=== PATIENT | male | born 1965 | race Caucasian/White ===

== ENCOUNTER 2021-03-19 10:44 | Outpatient (CLI) | payer OTHER ==
[2021-03-19 12:05] LABS: Bilirubin Neg (Negative); Blood, Urine Negative (Negative); Clarity Clear (Clear); Glucose, Urine (Dipstick) Normal (Negative); Ketone, Urine Negative (Negative); Leukocyte Negative (Negative); Nitrite Negative (Negative); Protein, Urine (Dipstick) Negative (Neg-Trace); Specific Gravity, Urine 1.005 (1.002-1.036); Urobilinogen Normal mg/dL (Less than 2)
[2021-03-19 12:08] LABS: #Eosinphils 0.1 10x3/uL (0.0-0.5); #Monocytes 0.6 10x3/uL (0.0-1.1); %Basophils 0.8 % (0.0-2.0); %Eosinophils 1.6 % (0.0-6.0); %Lymphocytes 25.1 % (18.0-47.0); %Monocytes 11.8 % (0.0-10.0); %Neutrophils 60.3 % (40.0-75.0); Mean Corpuscular HGB CONC 33.3 g/dL (32.0-36.0); Mean Corpuscular Hemoglobin 32.9 pg (27.0-33.0); Mean Corpuscular Volume 98.8 fl (81.2-95.1); Mean Platelet Volume 9.5 fl (7.4-10.4); Platelet Count 236 10x3/uL (150-450); RBC Distribution Width 13.1 % (11.5-14.5); Red Blood Cell (RBC) Count 4.25 10x6/uL (4.32-5.72)
[2021-03-19 12:17] LABS: Bacteria/HPF None Seen HPF (None Seen); RBC/HPF 0-3 HPF (0-3); Squamous Epithelial None Seen HPF (0-3); WBC/HPF 0-3 HPF (0-3)
[2021-03-19 16:44] LABS: SARS-CoV-2 PCR by NAA Not Detected (NotDetected)
== END 2021-03-19 10:45 | disposition home or self-care (01) ==
LOC: LABBT 10:44
PROVIDERS: ATTEND Orthopaedic Surgery Hand Surgery
DX: Z01.818 Encounter for other preprocedural examination (principal); M72.0 Palmar fascial fibromatosis [Dupuytren]; G56.02 Carpal tunnel syndrome, left upper limb; Z20.822 Contact with and (suspected) exposure to COVID-19
CPT/HCPCS: 81001; 85025; 87635; 93005; 93010; U0003; U0005

== ENCOUNTER 2021-03-24 07:52 | Day surgery (SDC) | payer OTHER ==
[2021-03-23 09:55] VITALS: BMI 24.9
[2021-03-24] MEDS ORDERED: Sodium Chloride 0.9% 10 ML ONE (09:03)
[2021-03-24] MEDS ORDERED: Bupivacaine PF 0.5% 30 ML VIAL ONE (09:03)
[2021-03-24] MEDS ORDERED: Betamet Acet/Betamet Na Ph 30 MG/5 ML VIAL ONE (09:03)
[2021-03-24] MEDS ORDERED: Bacitracin Zinc Ointment 30 gm TUBE ONE (09:03)
[2021-03-24] MEDS ORDERED: Fentanyl 100 MCG/2 ML VIAL ONE (09:14)
[2021-03-24] MEDS ORDERED: Lidocaine 1% PF 5 ML VIAL ONE (09:32)
[2021-03-24] MEDS ORDERED: PHENYLEPHRINE-NS 100 MCG/ML 10 ML SYRINGE ONE (09:32)
[2021-03-24] MEDS ORDERED: ePHEDrine Sulfate 50 MG/10 ML VIAL ONE (09:32)
[2021-03-24] MEDS ORDERED: Ketorolac Tromethamine 30 MG/ML VIAL ONE (09:32)
[2021-03-24] MEDS ORDERED: PROPOFOL 200 MG/20 ML VIAL ONE (09:32)
[2021-03-24] MEDS ORDERED: Dexamethasone 20 MG/5 ML VIAL ONE (09:32)
[2021-03-24] MEDS ORDERED: Ondansetron PF 4 MG/2 ML Vial ONE ×2 (09:32)
== END 2021-03-24 14:20 | disposition home or self-care (01) ==
LOC: SDC 07:52
PROVIDERS: ATTEND Orthopaedic Surgery Hand Surgery
PROC: 01N50ZZ Release Median Nerve, Open Approach (ICD-10-PCS; principal; 2021-03-24)
PROC: 0LN80ZZ Release Left Hand Tendon, Open Approach (ICD-10-PCS; 2021-03-24)
PROC: 0JNK0ZZ Release Left Hand Subcutaneous Tissue and Fascia, Open Approach (ICD-10-PCS; 2021-03-24)
DX: M72.0 Palmar fascial fibromatosis [Dupuytren] (principal); G56.03 Carpal tunnel syndrome, bilateral upper limbs; M19.042 Primary osteoarthritis, left hand; I10 Essential (primary) hypertension; E78.5 Hyperlipidemia, unspecified; K21.9 Gastro-esophageal reflux disease without esophagitis; M47.816 Spondylosis without myelopathy or radiculopathy, lumbar region; F17.200 Nicotine dependence, unspecified, uncomplicated; Z79.899 Other long term (current) drug therapy
CPT/HCPCS: 88304; J0690; J0702; J1100; J1885; J2405; J2704; J3010; J3490; S0020

== ENCOUNTER 2021-04-02 14:57 | Outpatient (CLI) | payer OTHER ==
[2021-04-03 01:36] LABS: SARS-CoV-2 PCR by NAA Not Detected (NotDetected)
== END 2021-04-02 14:58 | disposition home or self-care (01) ==
LOC: LABBT 14:57
PROVIDERS: ATTEND Orthopaedic Surgery Hand Surgery
DX: Z01.812 Encounter for preprocedural laboratory examination (principal); T81.30XA Disruption of wound, unspecified, initial encounter; Z20.822 Contact with and (suspected) exposure to COVID-19
CPT/HCPCS: 87635; U0003; U0005

== ENCOUNTER 2021-04-03 12:51 | Day surgery (SDC) | payer OTHER ==
[2021-04-02 15:10] VITALS: BMI 24.9
== END 2021-04-03 13:49 | disposition home or self-care (01) ==
LOC: SDC 12:51
PROVIDERS: ATTEND Orthopaedic Surgery Hand Surgery
DX: Z53.9 Procedure and treatment not carried out, unspecified reason (principal); T81.30XA Disruption of wound, unspecified, initial encounter
CPT/HCPCS: J0690

== ENCOUNTER 2021-04-04 07:53 | Day surgery (SDC) | payer OTHER ==
[2021-04-04] MEDS ORDERED: Fentanyl 100 MCG/2 ML VIAL ONE (09:04)
[2021-04-04] MEDS ORDERED: Mineral Oil Sterile 10ML 10 ML UDCUP ONE (09:07)
[2021-04-04] MEDS ORDERED: Bupivacaine 0.25% HCL 30 ML VIAL ONE (09:07)
[2021-04-04] MEDS ORDERED: Bacitracin Zinc Ointment 30 gm TUBE ONE (09:08)
[2021-04-04] MEDS ORDERED: Thrombin 5000 UNITS/5 ML VIAL ONE (09:08)
[2021-04-04] MEDS ORDERED: Sodium Chloride 0.9% 10 ML ONE (09:08)
[2021-04-04] MEDS ORDERED: Lidocaine 1% PF 5 ML VIAL ONE (09:25)
[2021-04-04] MEDS ORDERED: Dexamethasone 20 MG/5 ML VIAL ONE (09:25)
[2021-04-04] MEDS ORDERED: Ketorolac Tromethamine 30 MG/ML VIAL ONE (09:25)
[2021-04-04] MEDS ORDERED: PROPOFOL 200 MG/20 ML VIAL ONE (09:25)
[2021-04-04] MEDS ORDERED: Ondansetron PF 4 MG/2 ML Vial ONE (09:25)
[2021-04-04] MEDS ORDERED: PHENYLEPHRINE-NS 100 MCG/ML 10 ML SYRINGE ONE (09:25)
[2021-04-04] MEDS ORDERED: Midazolam HCl 2 mg/2 ml Vial ONE (09:59)
== END 2021-04-04 12:20 | disposition home or self-care (01) ==
LOC: SDC 07:53
PROVIDERS: ATTEND Orthopaedic Surgery Hand Surgery
PROC: 0HRGX73 Replacement of Left Hand Skin with Autologous Tissue Substitute, Full Thickness, External Approach (ICD-10-PCS; principal; 2021-04-04)
PROC: 0JBK0ZZ Excision of Left Hand Subcutaneous Tissue and Fascia, Open Approach (ICD-10-PCS; principal; 2021-04-04)
DX: T81.31XA Disruption of external operation (surgical) wound, not elsewhere classified, initial encounter (principal); I10 Essential (primary) hypertension; E78.5 Hyperlipidemia, unspecified; K21.9 Gastro-esophageal reflux disease without esophagitis; G56.01 Carpal tunnel syndrome, right upper limb; M72.0 Palmar fascial fibromatosis [Dupuytren]; M19.042 Primary osteoarthritis, left hand; Z79.899 Other long term (current) drug therapy; W19.XXXA Unspecified fall, initial encounter
CPT/HCPCS: J0690; J1100; J1885; J2250; J2405; J2704; J3010; J3490; S0020

== ENCOUNTER 2021-06-19 05:33 | Day surgery (SDC) | payer OTHER ==
[2021-06-17 15:32] VITALS: BMI 22.6
[2021-06-19] MEDS ORDERED: Midazolam HCl 2 mg/2 ml Vial ONE (12:56)
[2021-06-19] MEDS ORDERED: Fentanyl 100 MCG/2 ML VIAL ONE (13:21)
[2021-06-19] MEDS ORDERED: Lidocaine 1% PF 5 ML VIAL ONE (13:40)
[2021-06-19] MEDS ORDERED: Bupivacaine HCl 0.5%/Epinephrine 1:200,000/PF 30 ml Vial ONE (13:40)
[2021-06-19] MEDS ORDERED: PROPOFOL 200 MG/20 ML VIAL ONE (13:40)
[2021-06-19] MEDS ORDERED: Dexamethasone 20 MG/5 ML VIAL ONE (13:40)
[2021-06-19] MEDS ORDERED: Ondansetron PF 4 MG/2 ML Vial ONE (13:40)
[2021-06-19] MEDS ORDERED: ePHEDrine 50 MG/ML VIAL ONE (13:40)
[2021-06-19] MEDS ORDERED: Betamet Acet/Betamet Na Ph 30 MG/5 ML VIAL ONE (14:23)
[2021-06-19] MEDS ORDERED: Bacitracin Zinc Ointment 30 gm TUBE ONE (14:23)
[2021-06-19] MEDS ORDERED: Ketorolac Tromethamine 30 MG/ML VIAL ONE (16:50)
== END 2021-06-19 18:15 | disposition home or self-care (01) ==
LOC: SDC 05:33
PROVIDERS: ATTEND Orthopaedic Surgery Hand Surgery
PROC: 0LN70ZZ Release Right Hand Tendon, Open Approach (ICD-10-PCS; principal; 2021-06-19)
PROC: 3E0T3BZ Introduction of Anesthetic Agent into Peripheral Nerves and Plexi, Percutaneous Approach (ICD-10-PCS; principal; 2021-06-19)
PROC: 0JNJ0ZZ Release Right Hand Subcutaneous Tissue and Fascia, Open Approach (ICD-10-PCS; principal; 2021-06-19)
DX: M72.0 Palmar fascial fibromatosis [Dupuytren] (principal); Z79.899 Other long term (current) drug therapy
CPT/HCPCS: 88304; J0690; J0702; J1100; J1885; J2250; J2405; J2704; J3010; J3490

== ENCOUNTER 2021-06-30 11:11 | Day surgery (SDC) | payer OTHER ==
[2021-06-29 13:40] VITALS: BMI 22.8
[2021-06-30 14:20] LABS: SARS-CoV-2 NAA Rapid Test Not Detected (NotDetected)
[2021-06-30] MEDS ORDERED: Mineral Oil Sterile 10 ML VIAL ONE (16:55)
[2021-06-30] MEDS ORDERED: Bacitracin Zinc Ointment 30 gm TUBE ONE (16:55)
[2021-06-30] MEDS ORDERED: Neomycin-Polymyxin 1 ML AMP ONE (16:55)
[2021-06-30] MEDS ORDERED: Bupivacaine PF 0.5% 30 ML VIAL ONE (16:55)
[2021-06-30] MEDS ORDERED: Midazolam HCl 2 mg/2 ml Vial ONE (17:53)
[2021-06-30] MEDS ORDERED: Fentanyl 100 MCG/2 ML VIAL ONE ×2 (17:53→19:53)
[2021-06-30] MEDS ORDERED: PROPOFOL 200 MG/20 ML VIAL ONE (17:58)
[2021-06-30] MEDS ORDERED: Lidocaine 1% PF 5 ML VIAL ONE (17:58)
[2021-06-30] MEDS ORDERED: Labetalol HCl 100 MG/20 ML VIAL ONE (19:59)
[2021-06-30] MEDS ORDERED: Ketorolac Tromethamine 30 MG/ML VIAL ONE (20:23)
== END 2021-06-30 21:03 | disposition home or self-care (01) ==
LOC: SDC 11:11
PROVIDERS: ATTEND Orthopaedic Surgery Hand Surgery
PROC: 0JBJ0ZZ Excision of Right Hand Subcutaneous Tissue and Fascia, Open Approach (ICD-10-PCS; principal; 2021-06-30)
PROC: 0HRFX73 Replacement of Right Hand Skin with Autologous Tissue Substitute, Full Thickness, External Approach (ICD-10-PCS; principal; 2021-06-30)
DX: T81.31XA Disruption of external operation (surgical) wound, not elsewhere classified, initial encounter (principal); M19.042 Primary osteoarthritis, left hand; G56.01 Carpal tunnel syndrome, right upper limb; I10 Essential (primary) hypertension; E78.5 Hyperlipidemia, unspecified; K21.9 Gastro-esophageal reflux disease without esophagitis; Z79.899 Other long term (current) drug therapy; Z20.822 Contact with and (suspected) exposure to COVID-19
CPT/HCPCS: J0690; J1885; J2250; J2704; J3010; S0020; U0002; U0005